=== PATIENT | female | born 1990 | race Caucasian/White ===

== ENCOUNTER → 2018-02-23 | Outpatient (CLI) | payer OTHER ==
[~2018-02-23] MED LIST: PROHANCE 279.3MG/ML 15ML VIAL (A9576) As Ordered; PROHANCE 279.3MG/ML 5ML VIAL (A9576) As Ordered
== END ==
LOC: M RAD 16:53
DX: M79.89 Other specified soft tissue disorders (principal); M77.52 Other enthesopathy of left foot and ankle
CPT/HCPCS: A9576

== ENCOUNTER → 2018-03-12 | Outpatient (CLI) | payer OTHER | LOC: M SLEEP 20:02 | DX: R40.0 Somnolence (principal); R06.83 Snoring | CPT/HCPCS: 95810 ==

== ENCOUNTER → 2018-10-17 | Outpatient (REF) | payer OTHER | LOC: M LAB REF 18:37 | PROVIDERS: ATTEND Orthopaedic Surgery | DX: M67.472 Ganglion, left ankle and foot (principal) ==

== ENCOUNTER → 2018-11-11 | Outpatient (CLI) | payer MEDICAID, OTHER ==
--- NOTE | 2018-11-11 15:17 | REP ---
Clinical: Left foot pain Technique: AP, lateral, bilateral oblique views left foot . Findings: The osseous structures and joint spaces are intact and normal. There is no evidence for acute fracture or dislocation. Surrounding soft tissues are unremarkable. No subcutaneous emphysema or radiodense foreign body. Impression: No obvious acute abnormality by radiographic evaluation. Electronically Signed by Faustino Bacon MD 11/11/2018 03:07 P
== END ==
LOC: M LRY 14:50
PROVIDERS: ATTEND Nurse Practitioner Family
DX: M79.672 Pain in left foot (principal)

== ENCOUNTER → 2019-01-30 | Outpatient (CLI) | payer OTHER ==
[2019-01-30 17:29] LABS: THYROID STIMULATING HORMONE 1.27 uIU/ML (0.358-3.740); THYROXINE (T4) 11.8 UG/DL (4.5-12.0)
== END ==
LOC: M WUC 14:21
PROVIDERS: ATTEND Plastic Surgery Surgery of the Hand
DX: E66.9 Obesity, unspecified (principal)

== ENCOUNTER → 2019-05-11 | Outpatient (REF) | payer OTHER ==
[2019-05-11 19:00] LABS: CHLAMYDIA DNA AMPLIFICATION POSITIVE (NEGATIVE); GC DNA AMPLIFICATION NEGATIVE (NEGATIVE)
== END ==
LOC: M PLALAB 14:27
PROVIDERS: ATTEND Family Medicine
DX: Z11.3 Encounter for screening for infections with a predominantly sexual mode of transmission (principal); Z12.4 Encounter for screening for malignant neoplasm of cervix; R87.615 Unsatisfactory cytologic smear of cervix

== ENCOUNTER → 2019-06-01 | Outpatient (REF) | payer OTHER | LOC: M PLALAB 16:10 | PROVIDERS: ATTEND Family Medicine | DX: Z12.4 Encounter for screening for malignant neoplasm of cervix (principal) ==

== ENCOUNTER → 2020-02-15 | Outpatient (CLI) | payer OTHER ==
[2020-02-15 17:26] LABS: HCG, SERUM QUALITATIVE POSITIVE (NEGATIVE)
[2020-02-15 17:42] LABS: HCG, SERUM QUANTITATIVE 30126 MIU/ML
== END ==
LOC: M LAB 16:14
PROVIDERS: ATTEND Physician Assistant Medical
DX: N91.2 Amenorrhea, unspecified (principal)

== ENCOUNTER → 2020-03-17 | Outpatient (REF) | payer OTHER ==
[2020-03-17 17:40] LABS: HEMATOCRIT 36.2 % (36.0-47.0); HEMOGLOBIN 11.3 g/dl (12.0-15.5); MEAN CORPUSCULAR HEMOGLOBIN 23.4 pg (27.0-33.0); MEAN CORPUSCULAR HGB CONC 31.2 g/dl (32.0-36.5); MEAN CORPUSCULAR VOLUME 74.9 fl (80.0-96.0); PLATELET COUNT, AUTOMATED 360 10^3/uL (150-450); RED BLOOD COUNT 4.83 10^6/uL (4.00-5.40); WHITE BLOOD COUNT 8.3 10^3/uL (4.0-10.0)
[2020-03-17 18:37] LABS: HEPATITIS C VIRUS ABY INDEX < 0.0 INDEX (<0.8); HIV 1&2 SCREEN CENTAUR NEGATIVE (NEGATIVE)
== END ==
LOC: M PLALAB 14:27
PROVIDERS: ATTEND Obstetrics & Gynecology
DX: Z3A.11 11 weeks gestation of pregnancy (principal)

== ENCOUNTER → 2020-04-25 | Outpatient (REF) | payer OTHER ==
[2020-04-25 15:47] LABS: CHLAMYDIA DNA AMPLIFICATION NEGATIVE (NEGATIVE); GC DNA AMPLIFICATION NEGATIVE (NEGATIVE)
== END ==
LOC: M PLALAB 10:39
PROVIDERS: ATTEND Obstetrics & Gynecology
DX: Z3A.11 11 weeks gestation of pregnancy (principal)

== ENCOUNTER → 2020-05-15 | Outpatient (CLI) | payer OTHER ==
--- NOTE | 2020-05-16 04:15 | REP ---
INDICATION: ANATOMY COMPARISON: None. TECHNIQUE: Transabdominal obstetrical ultrasound with color Doppler evaluation. FINDINGS: Examination demonstrates a single live intrauterine in breech presentation. motion is identified by technologist. Placenta is noted anterior and grade 1 without evidence for placenta previa or abruption. Amniotic fluid volume is normal. Cervix measures 3.0 cm in length and appears closed. Placenta measures 2.3 cm from the closed internal os.. Gestational age by LMP 20 weeks 0 days with CELINA 10/02/2020. Gestational age by current measurements 20 weeks 0 days with CELINA 10/02/2020. FHR equals 142 beats per minute. BPD: 4.5 cm 19 weeks 5 days HC: 16.6 cm 19 weeks 2 days AC: 15.5 cm 20 weeks 5 days FL: 3.2 cm 19 weeks 6 days HL: 3.1 cm 20 weeks 2 days HC/AC: 1.07 Estimated weight 336 grams (55thpercentile). Anatomical assessment demonstrates normal structures including cranium, choroid plexus, cavum, cerebellum/posterior fossa, facial features, lungs, four-chamber heart/ventricular outflow tracts, diaphragm, stomach, cord insertion/three-vessel cord, kidneys/bladder, and extremities. IMPRESSION: Single live intrauterine in breech presentation demonstrating appropriate estimated weight and growth. Limited evaluation of the spine may warrant re-evaluation. Remainder of the anatomical assessment is complete and normal. <Electronically signed by Faustino Bacon > 05/16/20 [id number]
== END ==
LOC: M WHC 13:03
PROVIDERS: ATTEND Advanced Practice Midwife
DX: Z36.9 Encounter for antenatal screening, unspecified (principal); Z3A.20 20 weeks gestation of pregnancy

== ENCOUNTER → 2020-06-13 | Outpatient (CLI) | payer OTHER ==
--- NOTE | 2020-06-13 13:37 | REP ---
INDICATION: F/U ANATOMY COMPARISON: 05/15/2020 TECHNIQUE: Transabdominal obstetrical ultrasound with color Doppler evaluation. FINDINGS: Examination demonstrates a single live intrauterine in transverse presentation. motion is identified by technologist. Placenta is noted anterior and grade 1 without evidence for placenta previa or abruption. Amniotic fluid volume is normal. Cervix measures 3.6 cm in length and appears closed.. Gestational age by LMP 24 weeks 1 day with CELINA 10/02/2020. Gestational age by current measurements 24 weeks 3 days with CELINA 09/30/2020. FHR equals 161 beats per minute. Estimated weight 751 grams (59thpercentile). Anatomical assessment demonstrates normal structures including stomach, three-vessel cord/abdominal wall, kidneys and spine. IMPRESSION: Single live intrauterine demonstrating appropriate estimated weight and growth. In conjunction with prior examination anatomical assessment is complete and normal. <Electronically signed by Faustino Bacon > 06/13/20 [id number]
== END ==
LOC: M WHC 11:22
PROVIDERS: ATTEND Advanced Practice Midwife
DX: O99.212 Obesity complicating pregnancy, second trimester (principal); Z3A.24 24 weeks gestation of pregnancy

== ENCOUNTER → 2020-07-15 | Outpatient (REF) | payer OTHER ==
[2020-07-15 15:47] LABS: HEMATOCRIT 32.2 % (36.0-47.0); HEMOGLOBIN 9.4 g/dl (12.0-15.5); MEAN CORPUSCULAR HEMOGLOBIN 20.9 pg (27.0-33.0); MEAN CORPUSCULAR HGB CONC 29.2 g/dl (32.0-36.5); MEAN CORPUSCULAR VOLUME 71.7 fl (80.0-96.0); PLATELET COUNT, AUTOMATED 371 10^3/uL (150-450); RED BLOOD COUNT 4.49 10^6/uL (4.00-5.40); WHITE BLOOD COUNT 10.9 10^3/uL (4.0-10.0)
== END ==
LOC: M PLALAB 11:31
PROVIDERS: ATTEND Specialist
DX: Z34.82 Encounter for supervision of other normal pregnancy, second trimester (principal); Z36.89 Encounter for other specified antenatal screening

== ENCOUNTER → 2020-08-27 | Outpatient (CLI) | payer OTHER ==
[~2020-08-27] VITALS: Ht 154.9 cm; Wt 101.4 kg
[~2020-08-27] MED LIST changes: +BUTA-198 PO; +IRON325T2 PO; +ONDA-83 PO; +PRENTAB9 PO; -PROHANCE 279.3MG/ML 15ML VIAL (A9576) As Ordered; -PROHANCE 279.3MG/ML 5ML VIAL (A9576) As Ordered
[2020-08-27 10:53] VITALS: BP 104/59
[2020-08-27 12:21] LABS: INR 0.89; PARTIAL THROMBOPLASTIN TIME 22.4 SECONDS (24.2-38.5); PROTHROMBIN TIME 12.2 SECONDS (12.5-14.3)
[2020-08-27 14:51] VITALS: BP 101/58
--- NOTE | 2020-08-27 15:28 | IPN ---
PROGRESS NOTE DATE: 08/27/2020 SUBJECTIVE: Daisha is a 30-year-old 1, para 0, at 34-5/7 weeks gestation, estimated date of confinement (EDC) of 10/03/2020 based on first trimester ultrasound. She presents to labor and delivery today following a report of falling and hitting the right side of her abdomen. She denies vaginal bleeding, leakage of fluid and painful contractions or cramping, and the fetus has been active. Her care was initiated at [facility] in the first trimester. Her course complicated by history of abdominoplasty, history of migraines, obesity and anemia. OBJECTIVE: Temperature 98.5, pulse 78, respirations 16, blood pressure 104/59. She is alert and oriented times three. She does not appear in any discomfort. heart rate is 140 with moderate variability, positive accelerations, negative decelerations. There is no pattern of contractions. She has been monitored for approximately 4 hours continuously. LABORATORY DATA: She did have labs drawn. Her KleihauerBetke (KB) is 0.00. Her PT is 12.2, INR 0.89, PTT 22.4. Her fibrinogen is 490. ASSESSMENT: Intrauterine at 34-5/7 weeks, heart rate category 1, stable condition. PLAN: Discharge the patient to home. She is to keep her next visit that she has scheduled. I did review signs and symptoms of labor, kick counts and important danger signs to report. I did review access to care. The patient has had all of her questions answered and desires discharge home.
== END ==
LOC: M LDO 10:34
PROVIDERS: ATTEND Advanced Practice Midwife
DX: O9A.213 Injury, poisoning and certain other consequences of external causes complicating pregnancy, third trimester (principal); Z3A.34 34 weeks gestation of pregnancy; S30.1XXA Contusion of abdominal wall, initial encounter; W01.0XXA Fall on same level from slipping, tripping and stumbling without subsequent striking against object, initial encounter; Y92.9 Unspecified place or not applicable; Z88.8 Allergy status to other drugs, medicaments and biological substances

== ENCOUNTER 2020-09-03 17:20 | Outpatient (CLI) | payer OTHER ==
[~2020-09-03] VITALS: Ht 154.9 cm; Wt 101.4 kg
[2020-09-03 17:39] VITALS: BP 125/75
[2020-09-03 17:54] LABS: APPEARANCE, URINE HAZY (CLEAR); BACTERIA, URINE AUTO NEGATIVE (NEGATIVE); BILIRUBIN, URINE AUTO NEGATIVE (NEGATIVE); BLOOD, URINE BLOOD NEGATIVE (NEGATIVE); COLOR, URINE YELLOW (YELLOW); GLUCOSE, URINE (UA) AUTO NEGATIVE (NEGATIVE); KETONE, URINE AUTO NEGATIVE (NEGATIVE); LEUKOCYTE ESTERASE, URINE AUTO NEGATIVE (NEGATIVE); NITRITE, URINE AUTO NEGATIVE (NEGATIVE); PROTEIN, URINE AUTO 3+ mg/dL (NEGATIVE); RBC, URINE AUTO 1 /HPF (0-3); SQUAMOUS EPITHELIAL CELL UR AU 3 /HPF (0-6); UROBILINOGEN, URINE AUTO 0.2 mg/dL (0.0-2.0); WBC, URINE AUTO 2 /HPF (0-3)
--- NOTE | 2020-09-03 21:28 | IPN ---
PROGRESS NOTE DATE: 09/03/2020 Daisha is a 30-year-old, 1, para 0, at 35-6/7 weeks gestation, estimated date of confinement (EDC) of 10/03/2020 based on first trimester ultrasound. She presents to labor and delivery today with a report of feeling dizzy and nauseated following a hot shower and drinking some fluids. She does report that she has not eaten a regular meal today. The fetus has been active. She denies contractions, vaginal bleeding, and leakage of fluid. Her care was initiated at [facility] in the first trimester. course complicated by a history of abdominoplasty, a history of migraines, obesity, and anemia. OBSTRETRIC LABORATORY DATA: B positive, antibody screen negative, syphilis negative, gonorrhea and chlamydia negative, hepatitis B, hepatitis C negative, HIV negative, Rubella immune. Urine culture no growth. Gestational diabetic screening 115. PAST MEDICAL HISTORY: Migraines, chronic right knee pain, carpal tunnel, and obesity. SURGERIES: Liposuction, hip surgery, carpal tunnel, colposcopy, and abdominoplasty. FAMILY HISTORY: Hypertension, diabetes. SOCIAL HISTORY: Nonsmoker. Denies alcohol and drug use. Denies history of sexually transmitted infections. Denies history of abuse; physical, sexual, and emotional. ALLERGIES: NAPROSYN, which causes nausea and vomiting. OBJECTIVE: She is alert and oriented times three, she does not appear in any distress. Her skin is warm, pink, and dry. Blood pressure is 125/75. heart rate is 140 with moderate variability, positive accelerations, negative decelerations, there is occasional contractions. Sterile vaginal exam deferred. Her urinalysis (UA) is normal with a specific gravity of 1.010, negative ketones, negative nitrites. ASSESSMENT: Intrauterine at 35-6/7 weeks. heart rate category 1. Likely vasovagal experience. PLAN: Discharge the patient home. I did review the importance of regular nutrition, increased hydration, and decreasing the temperature of her shower to a tepid temperature to decrease vasodilation. She has had all of her questions answered and desires to be discharged home.
== END 2020-09-03 18:45 | disposition home or self-care (01) ==
LOC: M LDO 17:20
PROVIDERS: ATTEND Advanced Practice Midwife
DX: O26.893 Other specified pregnancy related conditions, third trimester (principal); Z3A.35 35 weeks gestation of pregnancy; R11.0 Nausea; O99.213 Obesity complicating pregnancy, third trimester; E66.9 Obesity, unspecified; O99.013 Anemia complicating pregnancy, third trimester; D64.9 Anemia, unspecified; Z88.1 Allergy status to other antibiotic agents

== ENCOUNTER → 2020-09-09 | Outpatient (REF) | payer OTHER | LOC: M SFHCWAGY 13:34 | PROVIDERS: ATTEND Obstetrics & Gynecology | DX: Z36.89 Encounter for other specified antenatal screening (principal); Z3A.36 36 weeks gestation of pregnancy ==

== ENCOUNTER → 2020-09-09 | Outpatient (REF) | payer OTHER | LOC: M PLALAB 10:49 | PROVIDERS: ATTEND Obstetrics & Gynecology | DX: Z53.8 Procedure and treatment not carried out for other reasons (principal) ==

== ENCOUNTER → 2020-09-16 | Outpatient (REF) | payer OTHER ==
[2020-09-16 13:46] LABS: HEMATOCRIT 40.4 % (36.0-47.0); HEMOGLOBIN 12.1 g/dl (12.0-15.5); MEAN CORPUSCULAR HEMOGLOBIN 22.3 pg (27.0-33.0); MEAN CORPUSCULAR VOLUME 74.4 fl (80.0-96.0); PLATELET COUNT, AUTOMATED 275 10^3/uL (150-450); RED BLOOD COUNT 5.43 10^6/uL (4.00-5.40); WHITE BLOOD COUNT 10.7 10^3/uL (4.0-10.0)
[2020-09-16 14:04] LABS: ALT/SGPT 19 U/L (12-78); BILIRUBIN,TOTAL 0.3 MG/DL (0.2-1.0); CREATININE FOR GFR 0.49 MG/DL (0.55-1.30); GLOMERULAR FILTRATION RATE > 60.0 (>60); LDH LACTATE DEHYDROGENASE 208 U/L (84-246); URIC ACID 3.8 MG/DL (2.6-6.0)
== END ==
LOC: M PLALAB 11:43
PROVIDERS: ATTEND Advanced Practice Midwife
DX: O13.9 Gestational [pregnancy-induced] hypertension without significant proteinuria, unspecified trimester (principal); Z3A.00 Weeks of gestation of pregnancy not specified

== ENCOUNTER 2020-09-20 13:57 | Inpatient (IN) | payer OTHER ==
[2020-09-20] VITALS (9 sets, daily range): BP systolic 93–153; BP diastolic 49–91
[~2020-09-20] VITALS: Ht 154.9 cm; Wt 103.4 kg
[2020-09-20] MEDS ORDERED: LACTATED RINGER'S 1000 ML IV STA (14:42)
[2020-09-20] MEDS ORDERED: PENICILLIN G POTASSIUM IV 5 MU in D5W MINI-BAG PLUS 100 ML IV STA (14:42)
[2020-09-20] MEDS ORDERED: OXYTOCIN DRIP 30 UNITS in IV 1 EA IV PRN (14:45)
[2020-09-20] MEDS ORDERED: miSOPROStol 50MCG 1/2 TABLET PV ONE (14:50)
[2020-09-20 15:12] LABS: HEMATOCRIT 39.4 % (36.0-47.0); HEMOGLOBIN 11.9 g/dl (12.0-15.5); MEAN CORPUSCULAR HEMOGLOBIN 22.1 pg (27.0-33.0); MEAN CORPUSCULAR HGB CONC 30.2 g/dl (32.0-36.5); MEAN CORPUSCULAR VOLUME 73.1 fl (80.0-96.0); PLATELET COUNT, AUTOMATED 272 10^3/uL (150-450); RED BLOOD COUNT 5.39 10^6/uL (4.00-5.40); WHITE BLOOD COUNT 9.8 10^3/uL (4.0-10.0)
[2020-09-20 15:41] LABS: ALT/SGPT 20 U/L (12-78); CREATININE FOR GFR 0.31 MG/DL (0.55-1.30); GLOMERULAR FILTRATION RATE > 60.0 (>60); LDH LACTATE DEHYDROGENASE 292 U/L (84-246); URIC ACID 3.7 MG/DL (2.6-6.0)
[2020-09-20 16:13] LABS: BILIRUBIN,TOTAL < 0.1 MG/DL (0.2-1.0)
--- NOTE | 2020-09-20 17:08 | HPEPDOC ---
Obstetrical History & Physical General Date of Admission Sep 20, 2020 at 13:57 History of Present Illness Daisha is a 30yo with SIUP at 38w1d by 11wk u/s presenting for scheduled IOL for pre-eclampsia withOUT severe features. She was seen to have mild bp's in clinic on 09/16 and had pre-E labs done which showed urine prot:creat 0.37 (H/H 12.1/40.4, plt 275, serum creat 0.49, AST 8, ALT 19). BP check on 09/17 showed still mild range bp's. She notes today occasional HAs that go away with tylenol. No regular/painful ctx. No LOF/VB. Good movement. 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 Last pap 06/01/2019 negative), History of STD (chlamydia) Past Medical History Medical History Obesity, migraines, chronic right knee pain, bilateral carpal tunnel syndrome Surgical History: Abdominoplasty, Other (liposuction 2007, hip surgery age 10, carpal tunnel releast 2013 and 2014) Family History Significant Family History: No pertinent family hx Social History Marital Status: Single Family situation: Spouse/partner home Psychosocial History: No pertinent psych hx * Smoker: former Smoker (quit 3 months before ) Alcohol: Denies Drugs: denies Imunizations Tdap status: current Allergies Coded Allergies: naproxen (Verified Adverse Reaction, Unknown, Vomiting, upset stomach, 08/27/20) Medications Scheduled Ferrous Sulfate (Iron) 325 Mg Tablet, 1 TAB PO DAILY No.137/Iron/Folic Acd ( Vitamin Tablet) 1 Each Tablet, 1 TAB PO DAILY Scheduled PRN Butalb/Acetaminophen/Caffeine (Lqlanh-Stmepkfc-Krre 50-325-40) 1 Each Tablet, 1 TAB PO Q4HP PRN for MIGRAINE Physical Examination Physical Examination GENERAL: Alert and oriented times three. ABDOMEN: Gravid and non-tender to touch. FETUS: Is vertex (VTX) by sterile vaginal examination (SVE) EXTREMITIES: No edema Vital Signs/I&O Vital Signs Date Time Temp Pulse Resp B/P (MAP) Pulse Ox O2 Delivery O2 Flow Rate FiO2 09/20/20 14:25 97.9 96 18 153/91 (111) Laboratory Data 24H LABS Laboratory Tests 2 09/20/20 14:06: Serology Scanned Report Hepatitis B Testing 09/20/20 14:57: Nucleated Red Blood Cells % (auto) 0.0, Glomerular Filtration Rate > 60.0, Uric Acid 3.7, Aspartate Amino Transf (AST/SGOT) 20, Alanine Aminotransferase (ALT/SGPT) 20, Lactate Dehydrogenase 292H CBC/BMP Laboratory Tests 09/20/20 14:57 Pertinent Laboratoy Data Blood Type: B+ RBC Antibody Screen: Negative HIV: Negative Hepatitis B: Negative Hepatitis C: Negative Rapid Plasma Reagin: Nonreactive Rubella: Immune Chlamydia/Gonorrhea: Negative Group B Streptococcus: Positive Glucose Tolerance Test: 115 Anatomy Ultrasound Ultrasound Date: May 15, 2020 Placenta Location: Anterior Normal Anatomy: Yes (limited eval spine) Placenta Previa: No Other Ultrasounds 06/13/20 59%ile, anatomy complete and wnl Steroid Therapy Steroid Therapy: No Vaginal Examination Dilation: 1cm Effacement: other (thick) Station: -2 Cervical Consistency: Firm Cervical Position: Middle Presentation: Cephalic presentation Assessment Heart Rate (FHR): 130 Variability: Moderate Accelerations: Positive Decelerations: None Tocometer Contractions: No Assessment/Plan Assessment Daisha is a 30yo with SIUP at 38w1d by 11wk u/s presenting for scheduled IOL for pre-eclampsia withOUT severe features. She was seen to have mild bp's in clinic on 09/16 and had pre-E labs done which showed urine prot:creat 0.37 (H/H 12.1/40.4, plt 275, serum creat 0.49, AST 8, ALT 19). On presentation her bp was mild range then normotensive. Exam benign. Cephalic by SCE. GBS positive. SCE 1/thick/-2, cervical leon bulb placed with 40cc NS and 50mcg PV cytotec placed. Cat I FHRT. Plan Admit and orient. 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 Diet: regular for dinner then clear liquids Group B Streptococcus (GBS) positive, PCN 5/2.5 per protocol Labs and intravenous (IV) per unit protocol. Counseled on leon bulb, cytotec, Pitocin and induction of labor (IOL). Lactated Ringers (LR): Bolus 800 mL, then at 125 mL/hr prior to epidural. Anticipate normal spontaneous delivery () Safe to proceed MD Frank Cramer Katrina D MD Sep 20, 2020 17:08
[2020-09-20] MEDS ORDERED: PENICILLIN G POTASSIUM IV 2.5 MU in IV 1 EA IV SCH (18:45)
[2020-09-20] MEDS ORDERED: BUTORPHANOL 2 MG/ML INJ (J0595) IV PRN (18:50)
[2020-09-20] MEDS: miSOPROStol 25MCG 1/4 TABLET PO SCH ×2 (19:59→23:57)
[2020-09-20] MEDS ORDERED: **PENDING PCN ENTRY XX SCH (21:00)
[2020-09-21] VITALS (47 sets, daily range): BP systolic 72–178; BP diastolic 42–114
[2020-09-21] MEDS ORDERED: PENICILLIN 100,000 U/ML SYRINGE 2.5MU As Ordered ONE (03:53)
[2020-09-21] MEDS: PENICILLIN G POTASSIUM IV 2.5 MU in IV 1 EA IV SCH ×5 (04:21→20:10)
[2020-09-21] MEDS ORDERED: OXYTOCIN DRIP 30 UNITS in IV 1 EA IV SCH (07:35)
[2020-09-21] MEDS: LR 1,000 ML IV SCH ×4 (08:14→17:52)
--- NOTE | 2020-09-21 15:37 | IPNPDOC ---
Text Note Date of Service The patient was seen on 09/21/20. NOTE Intrapartum Note Patient is doing well. Had a dose of IV stadol early this morning, but pain is manageable to her currently with no need for further meds and no desire for epidural yet. IV pitocin was started this morning and titrated up, currently at 6mu. Vitals overall wnl, occasional mild range bp, afebrile Cat I FHRT with bl 130's, +accels, -decels, mod jared Lares: ctx q2-3min SCE: /high After I came out of the room and sat to write this note, RN came to tell me patient's water broke and there is light meconium. Plan is to continue to titrate pitocin per protocol CEFM clear liquids diet patient may have epidural at any time that she desires will continue to closely monitor will notify NICU DrCalvin of presence of meconium safe to proceed Sharron Marie MD VS,Jeannie, I+O VSJeannie I+O Vital Signs Date Time Temp Pulse Resp B/P (MAP) Pulse Ox O2 Delivery O2 Flow Rate FiO2 09/21/20 13:25 90 159/98 (118) 09/21/20 07:56 18 09/21/20 07:00 98.7 Room Air Sharron Marie MD Sep 21, 2020 15:37
[2020-09-21] MEDS ORDERED: FENTANYL 2MCG/ML ROPIVACAINE 0.2% IN 0.9% NACL 100ML IVBAG As Ordered ONE (15:44)
[2020-09-21] MEDS ORDERED: NALOXONE INJ 0.4MG/1ML VIAL (J2310 PER 1MG) IV PRN ×3 (16:30→22:20)
[2020-09-21] MEDS ORDERED: EPIDURAL/PCA KEYS XX PRN (16:30)
[2020-09-21] MEDS ORDERED: EPIDURAL COMMENT XX SCH (16:30)
[2020-09-21] MEDS ORDERED: LACTATED RINGER'S 1000 ML IV PRN (16:30)
[2020-09-21] MEDS ORDERED: FENTANYL/ROPIVACAINE/NACL BAG 100 ML EPIDURAL SCH (16:30)
[2020-09-21] MEDS ORDERED: diphenhydrAMINE 50MG/ML VIAL (J1200) IV PRN ×2 (16:30→22:20)
[2020-09-21] MEDS ORDERED: REFRIGERATOR IV KEYS XX PRN (16:30)
[2020-09-21] MEDS ORDERED: ONDANSETRON 4MG/2ML VIAL IV PRN ×3 (16:30→23:30)
[2020-09-21] MEDS: ePHEDrine SULFATE 25 MG/5 ML(5MG/ML) SYRINGE IV PRN ×2 (16:40→16:46)
[2020-09-21] MEDS ORDERED: KETOROLAC 60MG 2ML VIAL As Ordered ONE (21:42)
[2020-09-21] MEDS ORDERED: OXYTOCIN INJ 10 UNITS/ML VIAL (J2590) As Ordered ONE (21:42)
[2020-09-21] MEDS ORDERED: ONDANSETRON 4MG/2ML VIAL As Ordered ONE (21:42)
[2020-09-21] MEDS ORDERED: dexameTHASONE 4 MG/ML 1ML VIAL (J1100 PER 1MG) As Ordered ONE (21:42)
[2020-09-21] MEDS ORDERED: LIDOCAINE PRES-FREE 2% 10ML AMP As Ordered ONE (21:48)
[2020-09-21] MEDS ORDERED: AZITHROMYCIN INJ 500 MG, VIAL MATE ADAPTER 1 EACH in NS 250 ML IV ONE (21:50)
[2020-09-21] MEDS ORDERED: MORPHINE PRES-FREE INJ 10 MG/10 ML VIAL (J2274) As Ordered ONE (21:50)
[2020-09-21] MEDS ORDERED: BICITRA 30ML SOLN UDC PO ONE (21:50)
[2020-09-21] MEDS ORDERED: ceFAZolin SOD 2 GM in IV 1 EA IV ONE (21:50)
--- NOTE | 2020-09-21 21:58 | IPNPDOC ---
Text Note Date of Service The patient was seen on 09/21/20. NOTE Decision for section Daisha is comfortable with epidural. Pitocin has been titrated up per protocol. Vitals wnl, afebrile SCE: 5-675/high Cat I-II FHRT for min-mod jared, +accels, -decels, mod jared I discussed with patient that she has had no cervical roving changer the past 5 hours, with notably no descent at all. The head is not engaged on the cervix, but above it. I gave her the option of proceeding with section vs giving more time, and at this time she would like to proceed with section for arrest of dilation. Nursing team and anesthesia as well as NICU attending made aware of plan Consent form for PLTCS and blood transfusion fully discussed with patient to include all r/b/a and patient and I signed consent forms Bicitra Anceph 2g IV and Azithromycin 500mg IV x1 pre-op for prophylaxis Will proceed to OR when team is ready. Sharron Marie MD VSJeannie I+O VSJeannie I+O Vital Signs Date Time Temp Pulse Resp B/P (MAP) Pulse Ox O2 Delivery O2 Flow Rate FiO2 09/21/20 19:55 78 16 111/58 (75) 09/21/20 19:22 98.7 09/21/20 07:00 Room Air Sharron Marie MD Sep 21, 2020 21:58
[2020-09-21] MEDS ORDERED: NALBUPHINE HCL 10 MG/ML AMP (J2300) IV PRN ×2 (22:20→23:30)
[2020-09-21] MEDS ORDERED: METOCLOPRAMIDE INJ 10MG/2ML VIAL (J2765 PER 1) IV PRN (22:20)
[2020-09-21] MEDS ORDERED: fentaNYL 100 MCG/2 ML INJECTION (J3010) As Ordered ONE ×2 (22:54→23:18)
[2020-09-21] MEDS ORDERED: KETAMINE HCL 200 MG/20 ML VIAL As Ordered ONE (22:59)
[2020-09-21] MEDS ORDERED: MIDAZOLAM INJ 2MG/2ML VIAL (J2250 PER 1MG) As Ordered ONE (23:09)
[2020-09-21] MEDS ORDERED: METOCLOPRAMIDE INJ 10MG/2ML VIAL (J2765 PER 1) As Ordered ONE (23:21)
[2020-09-21] MEDS ORDERED: oxyCODONE 5MG TAB PO PRN (23:30)
[2020-09-21] MEDS ORDERED: MEPERIDINE INJ 25 MG/ML VIAL (J2175) IV PRN (23:30)
[2020-09-21] MEDS ORDERED: fentaNYL 100 MCG/2 ML INJECTION (J3010) IV PRN (23:30)
[2020-09-21] MEDS ORDERED: HYDROMORPHONE HCL 0.5 MG/ 0.5 ML SYRINGE (J1170 PER 1) IV PRN (23:30)
[2020-09-22] VITALS (8 sets, daily range): BP systolic 131–158; BP diastolic 64–88
[2020-09-22] MEDS ORDERED: MEASLES,MUMPS,RUBELLA VACCINE INJ (MMR-II) (90707) SC SCH (00:45)
[2020-09-22] MEDS ORDERED: RHOGAM 300 MCG (1500 IU) INJ (J2790) IM SCH (00:45)
[2020-09-22] MEDS ORDERED: OXYTOCIN DRIP 30 UNITS in IV 1 EA IV SCH (00:45)
[2020-09-22] MEDS ORDERED: PERCOCET 5MG/325MG TAB PO PRN (00:45)
[2020-09-22] MEDS ORDERED: METHYLERGONOVINE MALEATE 0.2 MG/ML VIAL (J2210) IM ONE (00:45)
[2020-09-22] MEDS ORDERED: KETOROLAC 30 MG/ML 1ML VIAL IV SCH ×2 (00:45→09:00)
[2020-09-22] MEDS ORDERED: LR 1,000 ML IV SCH (00:45)
[2020-09-22] MEDS ORDERED: PERCOCET 5MG/325MG TAB As Ordered ONE (01:00)
[2020-09-22] MEDS: PERCOCET 5MG/325MG TAB PO PRN ×4 (01:02→22:39)
[2020-09-22] MEDS ORDERED: OXYTOCIN 30 UNITS IN 0.9% NaCl 500ML IV BAG (J2590) As Ordered ONE (01:07)
[2020-09-22] MEDS ORDERED: PERCOCET PO (06:52)
[2020-09-22] MEDS ORDERED: DOK1CAP7 PO (06:52)
--- NOTE | 2020-09-22 07:41 | RO ---
OPERATIVE NOTE DATE OF OPERATION: 09/21/2020 PREOPERATIVE DIAGNOSIS: 1. Induction of labor for preeclampsia without severe features at 38 weeks, 3 days. 2. Arrest of dilation. 3. History of abdominoplasty. 4. Obesity, starting BMI 35. POSTOPERATIVE DIAGNOSIS: 1. Induction of labor for preeclampsia without severe features at 38 weeks, 3 days. 2. Arrest of dilation. 3. History of abdominoplasty. 4. Obesity, starting BMI 35. PROCEDURE: Primary low transverse section. SURGEON: Sharron Marie MD [employer] TECHNICAL: Jc Coulter DO whose assistance was necessary for retraction, delivery of the baby and closure of subsequent layers. ANESTHESIA: epidural INDICATION FOR OPERATION: Daisha is a 30-year-old, G1, now P 1-0-0-1, who came to labor and delivery for an induction of labor at 38 weeks, 2 days for preeclampsia WITHOUT severe features. She had induction started with Cytotec, Cody bulb and she progressed with Pitocin to 6, 75, minus 3 but made no further progress over six hours and there was absolutely no descent. She has a history of an abdominoplasty and my suspicion is that is what caused the baby not to descend and get into appropriate positioning. She also has a history of obesity with a BMI of 37 starting and anemia. She is noted to be GBS positive and received penicillin in labor. MATERIAL FORWARDED TO THE LAB FOR EXAMINATION: None. DESCRIPTION OF FINDINGS: Female in cephalic presentation, Apgars 7 and 9, weight 3430 gm or 7 lb, 9 oz. Normal appearing uterus. With the history of the abdominoplasty, we did note some permanent sutures present in the subcutaneous layers including the fascia and the tissue was quite edematous and lacked good turgor in the subcutaneous layers. INFECTION CLASSIFICATION: 2. ESTIMATED BLOOD LOSS: 500 mL IV FLUIDS: 2000 mL of lactated Ringer's. URINE OUTPUT: 200 mL of clear yellow urine. DESCRIPTION OF PROCEDURE: After obtaining informed consent, the patient was taken to the operating room. She had a category 1 to 2 heart rate tracing prior with minimal to moderate variability, positive accels and no decels. She had a Cody catheter and bilateral sequential compression devices already in place secondary to her epidural. She was prepped and draped in normal sterile fashion in the dorsal supine position with a left lateral tilt. A timeout was performed to confirm patient name, date of , procedure and indication. The team was in agreement. She received 500 mg of IV azithromycin as well as 2 gm of Ancef IV prophylactically. Epidural anesthesia was found to be adequate using an Allis clamp. A Pfannenstiel skin incision was made with a scalpel below the prior abdominoplasty scar approximately two fingerbreadths above the pubic symphysis. The incision was carried through the underlying layer of fascia and there was a lot of edema in the tissue with a lack of good turgor. The fascia was incised in the midline and the incision was extended laterally with Wilson scissors. Superior and inferior aspects of the fascial incision were grasped with Mendez clamps, elevated and the underlying rectus muscles were dissected off bluntly and sharply. The peritoneum was entered digitally and the rectus muscles were in the midline. The peritoneal incision was extended superiorly and inferiorly with good visualization of the bladder. The Mobius retractor was inserted. Vesicouterine peritoneum was identified, grasped with pickups and entered sharply with Metzenbaum scissors. Incision was extended laterally and a bladder flap was created digitally. The lower uterine segment was scored in a transverse fashion with a scalpel. The uterus was entered bluntly and the incision was extended with traction. There was meconium stained fluid noted when the patient earlier had spontaneous rupture of membranes and at time of , we also noted thin meconium stained fluid. The infant's head was elevated to the level of the incision. Fundal pressure was applied. The head was delivered atraumatically in the OA position. The anterior shoulder, posterior shoulder and corpus were delivered without difficulty. The nose and mouth were suctioned with bulb suction. Cord was clamped x2 and cut. was handed off to the awaiting nursing team. The placenta was removed with uterine massage and traction on the cord. The uterus was left in situ and cleared of all clot and debris. The uterine incision was repaired with 0 Vicryl suture in a running locking fashion. A second layer of 0 Monocryl was used to close the hysterotomy incision in an imbricating fashion. The uterine incision was inspected and hemostasis was noted. We then removed the Mobius retractor and then placed Aleah along the hysterotomy line. The peritoneum was closed using 3-0 Vicryl suture in a running fashion and rectus muscles were reapproximated with [id number] sutures using 0 Vicryl suture. The fascia was reapproximated with 0 Vicryl suture in a running fashion. The subcutaneous tissue was copiously irrigated. Griselda's fascia was reapproximated using 3-0 Vicryl suture in a running fashion. Skin edges were reapproximated using three inverted interrupted stitches using 3-0 Vicryl suture followed by running subcuticular stitch using 4-0 Monocryl suture. The incision was cleaned using a wet lap, dried with a dry lap. Steri-Strips were applied in the usual fashion perpendicular to the Pfannenstiel incision and then an Optifoam dressing was placed overlying. The vagina was cleared of all blood clot without active bleeding noted. The fundus was difficult to assess given the history of her abdominoplasty and the tight overall abdomen. I asked anesthesia to give the patient 0.2 mg of IM Methergine and asked the nursing team to continue another bag of 30 units of Pitocin at maintenance rates in the PACU. All counts were correct x2. The procedure was without complications. The patient tolerated the procedure well. She was taken to the recovery room on labor and delivery in stable condition. OSMIN
[2020-09-22] MEDS: PRENATAL VITAMINS CHEWABLE TABLET PO SCH (07:56)
[2020-09-22] MEDS: DOCUSATE SODIUM 100MG CAPSULE PO SCH ×2 (07:56→21:04)
--- NOTE | 2020-09-22 08:34 | IPNPDOC ---
Progress Note Date of Service: Sep 22, 2020 Day#: 1 Progress Note POD 1 SUBJECT: Daisha is a 30yo [id number] s/p uncomplicated PLTCS at 38w3d for arrest of dilation when undergoing IOL for pre-eclampsia withOUT severe features, doing well /post-op day #1. Surgery was just before midnight last night. She has not yet ambulated, leon catheter in place draining clear yellow urine and tolerating fluids without n/v. without issue. Reports lochia is like a normal period. No f/c/CP/SOB. OBJECTIVE: VITAL SIGNS: Mild range bp's, afebrile. Alert and oriented times three. Abdomen: Fundus firm at U-1. Soft (tight related to prior abdominoplasty), appropriately tender to palpation. Pfannenstiel incision covered by dry/intact optifoam dressing with no strikethrough. Extremities: no pain with palpation of calves Labs: pre-op H/H: 11.9/39.4 ASSESSMENT: Daisha is a 30yo [id number] s/p uncomplicated PLTCS at 38w3d for arrest of dilation when undergoing IOL for pre-eclampsia withOUT severe features, doing well /post-op day #1. Mild range bp's, afebrile, hemodynamically stable with no evidence of infection. No e/o worsening pre-E. PLAN: 1. Routine post-/post-op care 2. Toradol and prn percocet for pain. 3. Encourage breast feeding/pumping and ambulation as well as use of IS 4. Regular diet 5. Possible discharge on 09/24 if meeting all milestones Sharron Marie MD VS, I&O, 24H, Fishbone Vital Signs/I&O Vital Signs Date Time Temp Pulse Resp B/P (MAP) Pulse Ox O2 Delivery O2 Flow Rate FiO2 09/22/20 07:58 18 09/22/20 06:00 97.7 89 142/84 (103) 97 Room Air I&O- Last 24 Hours up to 6 AM 09/22/20 06:00 Intake Total 2275 ml Output Total 2275 ml Balance 0 ml Sharron Marie MD Sep 22, 2020 08:34
[2020-09-22] MEDS: KETOROLAC 30 MG/ML 1ML VIAL IV SCH (17:54)
[2020-09-22] MEDS: ONDANSETRON 4MG/2ML VIAL IV PRN (22:38)
[2020-09-23] MEDS: KETOROLAC 30 MG/ML 1ML VIAL IV SCH ×2 (00:16→06:33)
[2020-09-23 02:00] VITALS: BP 130/78
[2020-09-23] MEDS: SIMETHICONE 80MG CHEW TAB PO PRN ×2 (03:19→11:05)
[2020-09-23] MEDS: ONDANSETRON 4MG/2ML VIAL IV PRN (04:42)
[2020-09-23] MEDS: PERCOCET 5MG/325MG TAB PO PRN (05:47)
[2020-09-23 06:00] VITALS: BP 137/85
[2020-09-23 07:50] LABS: HEMATOCRIT 34.7 % (36.0-47.0); HEMOGLOBIN 10.5 g/dl (12.0-15.5); MEAN CORPUSCULAR HGB CONC 30.3 g/dl (32.0-36.5); MEAN CORPUSCULAR VOLUME 76.1 fl (80.0-96.0); PLATELET COUNT, AUTOMATED 250 10^3/uL (150-450); RED BLOOD COUNT 4.56 10^6/uL (4.00-5.40); WHITE BLOOD COUNT 11.5 10^3/uL (4.0-10.0)
[2020-09-23] MEDS: PRENATAL VITAMINS CHEWABLE TABLET PO SCH (09:28)
[2020-09-23] MEDS: DOCUSATE SODIUM 100MG CAPSULE PO SCH (09:28)
[2020-09-23 10:00] VITALS: BP 162/78
--- NOTE | 2020-09-23 15:54 | DS.PDOC ---
Discharge Summary General Date of Admission Sep 20, 2020 at 13:57 Date of Discharge Sep 23, 2020 Discharge Summary PROCEDURES PERFORMED DURING STAY: . ADMITTING DIAGNOSES: 1. 38 3/7 weeks, preeclampsia. DISCHARGE DIAGNOSES: 1. delivered. COMPLICATIONS/CHIEF COMPLAINT: IOL. HISTORY OF PRESENT ILLNESS: 30 yo at 38 3/7 weeks present for labor induction due to preeclampsia. HOSPITAL COURSE: 30 yo G1 at 38 3/7 weeks gestation admitted with diagnosis of preeclampsia. Labor induction initiated with Misoprostol. Pt made slow progress. She was eventually diagnosed with arrest of dilation. On 09/21/2020 she had a section. THere were no complications. She had adequate return of bryan dder and bowel function. She was stable for discharge on post psrtum day#2. DISCHARGE MEDICATIONS: Please see below. ALLERGIES: Please see below. PHYSICAL EXAMINATION ON DISCHARGE: VITAL SIGNS: Please see below. GENERAL: WNL HEENT: NCAT CARDIOVASCULAR EXAMINATION: RRR RESPIRATORY EXAMINATION: CTAB ABDOMINAL EXAMINATION: NT, ffm, dressing I EXTREMITIES: NT LABORATORY DATA: Please see below. PROGNOSIS: good ACTIVITY: As tolerated. DIET: reg DISCHARGE PLAN: home DISCHARGE INSTRUCTIONS: 1. D/C home 2. Pain managment 3. fu office 2 weeks. DISCHARGE CONDITION: Stable. TIME SPENT ON DISCHARGE: Greater than 10 minutes. Vital Signs/I&Os Vital Signs Date Time Temp Pulse Resp B/P (MAP) Pulse Ox O2 Delivery O2 Flow Rate FiO2 09/23/20 10:00 98.1 74 20 162/78 (106) 96 Room Air I&O- Last 24 Hours up to 6 AM 09/23/20 06:00 Intake Total 3210 ml Output Total 2700 ml Balance 510 ml Laboratory Data Labs 24H Laboratory Tests 2 09/23/20 07:15: Nucleated Red Blood Cells % (auto) 0.0 CBC/BMP Laboratory Tests 09/23/20 07:15 Discharge Medications Scheduled Docusate Sodium (Dok) 100 Mg Capsule, 100 MG PO BID Ferrous Sulfate (Iron) 325 Mg Tablet, 1 TAB PO DAILY, (Reported) No.137/Iron/Folic Acd ( Vitamin Tablet) 1 Each Tablet, 1 TAB PO DAILY, (Reported) Scheduled PRN Butalb/Acetaminophen/Caffeine (Rrjnal-Zvgbgncl-Iwis 50-325-40) 1 Each Tablet, 1 TAB PO Q4HP PRN for MIGRAINE, (Reported) Oxycodone/Acetaminophen (Oxycodone-Acetaminophen 5-325) 1 Each Tablet, 2 TAB PO Q6H PRN for SEVERE PAIN (PS 8-10) Allergies Coded Allergies: naproxen (Verified Adverse Reaction, Mild, Vomiting, upset stomach, 1) DAGOBERTO MORA MD Sep 23, 2020 15:49
[2020-09-23] MEDS ORDERED: OXYC-517 PO (17:45)
[2020-09-23] MEDS ORDERED: MM S100C PO (17:47)
== END 2020-09-23 16:34 | disposition home or self-care (01) | DRG 540 ==
LOC: M LDI 13:57 → M OBS 09-22 01:28
PROVIDERS: ADMIT Obstetrics & Gynecology; ATTEND Obstetrics & Gynecology
PROC: 3E0P7GC Introduction of Other Therapeutic Substance into Female Reproductive, Via Natural or Artificial Opening (ICD-10-PCS; 2020-09-20)
PROC: 10D00Z1 Extraction of Products of Conception, Low, Open Approach (ICD-10-PCS; principal; 2020-09-21 21:38)
DX: O14.04 Mild to moderate pre-eclampsia, complicating childbirth (principal); Z3A.38 38 weeks gestation of pregnancy; Z37.0 Single live birth; O99.214 Obesity complicating childbirth; E66.9 Obesity, unspecified; Z68.37 Body mass index [BMI] 37.0-37.9, adult; O99.824 Streptococcus B carrier state complicating childbirth; O77.0 Labor and delivery complicated by meconium in amniotic fluid; O62.0 Primary inadequate contractions

== ENCOUNTER → 2020-12-29 | Outpatient (CLI) | payer OTHER ==
[~2020-12-29] MED LIST changes: +DOK1CAP4 PO; +MM S100C PO; +OXYC-517 PO; +PERCOCET PO
[2020-12-29 13:18] LABS: FREE T4 1.06 NG/DL (0.76-1.46); THYROID STIMULATING HORMONE 0.812 uIU/ML (0.358-3.740)
[2020-12-29 13:21] LABS: TOTAL 25(OH) VITAMIN D 21.6 NG/ML (30.0-100.0)
== END ==
LOC: M LAB 11:41
PROVIDERS: ATTEND Student in an Organized Health Care Education/Training Program
DX: E55.9 Vitamin D deficiency, unspecified (principal); F41.9 Anxiety disorder, unspecified

== ENCOUNTER → 2021-05-07 | Outpatient (CLI) | payer OTHER | LOC: M WUC 15:09 | PROVIDERS: ATTEND Nurse Practitioner Family | DX: M25.511 Pain in right shoulder (principal); R07.81 Pleurodynia ==

== ENCOUNTER → 2021-07-22 | Outpatient (CLI) | payer OTHER | LOC: M WUC 09:23 | PROVIDERS: ATTEND Student in an Organized Health Care Education/Training Program | DX: M54.50 Low back pain, unspecified (principal) ==

== ENCOUNTER → 2021-11-24 | Outpatient (CLI) | payer OTHER | LOC: M PLAIMG 15:43 | PROVIDERS: ATTEND Physician Assistant | DX: M51.36 Other intervertebral disc degeneration, lumbar region (principal) ==

== ENCOUNTER → 2022-01-16 | Outpatient (REF) | payer OTHER ==
[2022-01-16 17:51] LABS: APPEARANCE, URINE MANUAL CLEAR (CLEAR); COLOR, URINE MANUAL LT YELLOW (YELLOW)
[2022-01-16 17:52] LABS: GLUCOSE, URINE (UA) MANUAL NEGATIVE (NEGATIVE); KETONE, URINE MANUAL NEGATIVE (NEGATIVE); PROTEIN, URINE MANUAL NEGATIVE (NEGATIVE); UROBILINOGEN, URINE MANUAL NORMAL (NORMAL)
[2022-01-16 17:53] LABS: BILIRUBIN, URINE MANUAL NEGATIVE (NEGATIVE); BLOOD URINE MANUAL NEGATIVE (NEGATIVE); LEUKOCYTE ESTERASE, URINE MAN NEGATIVE (NEGATIVE); NITRITE, URINE MANUAL NEGATIVE (NEGATIVE)
[2022-01-16 20:01] LABS: GC DNA AMPLIFICATION NEGATIVE (NEGATIVE)
== END ==
LOC: M LAB REF 17:16
PROVIDERS: ATTEND Physician Assistant Medical
DX: N39.0 Urinary tract infection, site not specified (principal)

== ENCOUNTER → 2022-03-09 | Outpatient (CLI) | payer OTHER ==
[2022-03-09 07:53] LABS: BASO # 0.1 10^3/uL (0.0-0.2); EOS # 0.1 10^3/uL (0.0-0.5); EOS % 2.8 % (0.0-3.0); HEMATOCRIT 38.9 % (36.0-47.0); LYMPH # 1.6 10^3/uL (1.5-5.0); LYMPH % 31.8 % (24.0-44.0); MEAN CORPUSCULAR HEMOGLOBIN 24.2 pg (27.0-33.0); MEAN CORPUSCULAR HGB CONC 30.8 g/dl (32.0-36.5); MEAN CORPUSCULAR VOLUME 78.4 fl (80.0-96.0); MONO # 0.3 10^3/uL (0.0-0.8); MONO % 5.7 % (2.0-8.0); NEUTROPHILS % 58.5 % (36.0-66.0); PLATELET COUNT, AUTOMATED 373 10^3/uL (150-450); RED BLOOD COUNT 4.96 10^6/uL (4.00-5.40); WHITE BLOOD COUNT 5.1 10^3/uL (4.0-10.0)
[2022-03-09 08:25] LABS: RHEUMATOID FACTOR QUANT < 3.5 IU/ML (<14)
[2022-03-09 08:26] LABS: ERYTHROCYTE SEDIMENTATION RATE 13 mm/hr (0-20)
== END ==
LOC: M LAB 06:45
PROVIDERS: ATTEND Orthopaedic Surgery
DX: M51.36 Other intervertebral disc degeneration, lumbar region (principal)

== ENCOUNTER → 2022-03-09 | Outpatient (CLI) | payer OTHER ==
[2022-03-09 08:07] LABS: BASO # 0.1 10^3/uL (0.0-0.2); BASO % 1.4 % (0.0-1.0); EOS # 0.2 10^3/uL (0.0-0.5); EOS % 3.2 % (0.0-3.0); HEMATOCRIT 39.1 % (36.0-47.0); HEMOGLOBIN 12.2 g/dl (12.0-15.5); LYMPH # 1.7 10^3/uL (1.5-5.0); LYMPH % 32.7 % (24.0-44.0); MEAN CORPUSCULAR HEMOGLOBIN 24.5 pg (27.0-33.0); MEAN CORPUSCULAR HGB CONC 31.2 g/dl (32.0-36.5); MEAN CORPUSCULAR VOLUME 78.7 fl (80.0-96.0); MONO # 0.3 10^3/uL (0.0-0.8); MONO % 5.1 % (2.0-8.0); NEUTROPHILS # 2.9 10^3/uL (1.5-8.5); NEUTROPHILS % 57.2 % (36.0-66.0); PLATELET COUNT, AUTOMATED 377 10^3/uL (150-450); RED BLOOD COUNT 4.97 10^6/uL (4.00-5.40); WHITE BLOOD COUNT 5.1 10^3/uL (4.0-10.0)
[2022-03-09 08:16] LABS: POTASSIUM SERUM 4.5 MMOL/L (3.5-5.1)
[2022-03-09 08:29] LABS: FERRITIN 7.5 NG/ML (7.3-270.7)
== END ==
LOC: M RAD 06:42
PROVIDERS: ATTEND Student in an Organized Health Care Education/Training Program
DX: K76.89 Other specified diseases of liver (principal); K76.9 Liver disease, unspecified; R71.8 Other abnormality of red blood cells; E87.6 Hypokalemia

== ENCOUNTER → 2022-03-24 | Outpatient (REF) | payer OTHER ==
[2022-03-24 19:34] LABS: APPEARANCE, URINE MANUAL CLEAR (CLEAR); COLOR, URINE MANUAL YELLOW (YELLOW)
[2022-03-24 19:35] LABS: BILIRUBIN, URINE MANUAL NEGATIVE (NEGATIVE); BLOOD URINE MANUAL NEGATIVE (NEGATIVE); GLUCOSE, URINE (UA) MANUAL NEGATIVE (NEGATIVE); KETONE, URINE MANUAL NEGATIVE (NEGATIVE); LEUKOCYTE ESTERASE, URINE MAN NEGATIVE (NEGATIVE); NITRITE, URINE MANUAL NEGATIVE (NEGATIVE); PROTEIN, URINE MANUAL NEGATIVE (NEGATIVE); SPECIFIC GRAVITY,URINE MANUAL 1.015 (1.002-1.035); UROBILINOGEN, URINE MANUAL NORMAL (NORMAL)
== END ==
LOC: M SMT 17:00
PROVIDERS: ATTEND Nurse Practitioner Women's Health
DX: N20.0 Calculus of kidney (principal)

== ENCOUNTER → 2022-04-01 | Outpatient (CLI) | payer OTHER | LOC: M RAD 15:47 | PROVIDERS: ATTEND Nurse Practitioner Women's Health | DX: N20.0 Calculus of kidney (principal) ==

== ENCOUNTER → 2022-04-15 | Outpatient (CLI) | payer OTHER ==
[~2022-04-15] MED LIST changes: +BOTO200I; +NORT25CA2; +SUMA100T2; +TIZA10TA
[2022-04-15 16:36] LABS: HEMATOCRIT 41.3 % (36.0-47.0); HEMOGLOBIN 12.7 g/dl (12.0-15.5); MEAN CORPUSCULAR HEMOGLOBIN 24.6 pg (27.0-33.0); MEAN CORPUSCULAR HGB CONC 30.8 g/dl (32.0-36.5); MEAN CORPUSCULAR VOLUME 79.9 fl (80.0-96.0); PLATELET COUNT, AUTOMATED 322 10^3/uL (150-450); RED BLOOD COUNT 5.17 10^6/uL (4.00-5.40); WHITE BLOOD COUNT 8.3 10^3/uL (4.0-10.0)
[2022-04-15 16:58] LABS: HCG, SERUM QUALITATIVE NEGATIVE (NEGATIVE)
[2022-04-15 17:00] LABS: BLOOD UREA NITROGEN 14 MG/DL (9-23); CALCIUM LEVEL 8.9 MG/DL (8.5-10.1); CARBON DIOXIDE LEVEL 27 MMOL/L (20-31); CHLORIDE LEVEL 104 MMOL/L (98-107); CREATININE FOR GFR 0.56 MG/DL (0.55-1.30); GLOMERULAR FILTRATION RATE > 60.0 (>60); GLUCOSE, FASTING 76 MG/DL (60-100); SODIUM LEVEL 140 MMOL/L (136-145)
[2022-04-15 17:16] LABS: INR 0.94; PROTHROMBIN TIME 12.8 SECONDS (12.5-14.5)
[2022-04-15 17:17] LABS: PARTIAL THROMBOPLASTIN TIME 29.8 SECONDS (24.8-34.2)
== END ==
LOC: M LAB 16:02
PROVIDERS: ATTEND Nurse Practitioner Women's Health
DX: Z01.818 Encounter for other preprocedural examination (principal); N20.0 Calculus of kidney

== ENCOUNTER → 2022-04-18 | Outpatient (CLI) | payer OTHER | LOC: M LABSMTC 10:28 | PROVIDERS: ATTEND Anesthesiology | DX: Z01.812 Encounter for preprocedural laboratory examination (principal); Z20.822 Contact with and (suspected) exposure to COVID-19 ==

== ENCOUNTER → 2022-10-15 | Outpatient (CLI) | payer OTHER | LOC: M LAB 17:20 | PROVIDERS: ATTEND Physician Assistant | DX: N20.0 Calculus of kidney (principal) ==

== ENCOUNTER → 2022-11-25 | Outpatient (REF) | payer OTHER ==
[2022-11-25 13:24] LABS: HEMOGLOBIN A1c 5.1 % (4.0-6.0)
[2022-11-25 13:25] LABS: ALBUMIN 3.8 G/DL (3.2-5.2); ALKALINE PHOSPHATASE 51 U/L (46-116); ALT/SGPT 15 U/L (7.0-40); AST/SGOT < 8 U/L (<34); BILIRUBIN,TOTAL 0.4 MG/DL (0.3-1.2); BLOOD UREA NITROGEN 9 MG/DL (9-23); CALCIUM LEVEL 8.9 MG/DL (8.5-10.1); CARBON DIOXIDE LEVEL 24 MMOL/L (20-31); CHLORIDE LEVEL 109 MMOL/L (98-107); CHOLESTEROL LEVEL 183 MG/DL (<200); CHOLESTEROL RISK RATIO 3.33 (<5); CREATININE FOR GFR 0.55 MG/DL (0.55-1.30); GLOMERULAR FILTRATION RATE > 60.0 (>60); GLUCOSE, FASTING 89 MG/DL (60-100); HDL CHOLESTEROL 54.8 MG/DL (>40); NON-HDL-C 128.2 MG/DL; POTASSIUM SERUM 4.1 MMOL/L (3.5-5.1); SODIUM LEVEL 141 MMOL/L (136-145); TOTAL PROTEIN 7.1 G/DL (5.7-8.2); TRIGLYCERIDES LEVEL 56 MG/DL (<150)
[2022-11-25 13:26] LABS: FREE T4 1.13 NG/DL (0.89-1.76); THYROID STIMULATING HORMONE 1.117 uIU/ML (0.55-4.78)
== END ==
LOC: M WUC 12:04
PROVIDERS: ATTEND Student in an Organized Health Care Education/Training Program
DX: O99.212 Obesity complicating pregnancy, second trimester (principal)

== ENCOUNTER → 2023-03-14 | Outpatient (CLI) | payer OTHER ==
[2023-03-14 17:48] LABS: HEMOGLOBIN 12.8 g/dl (12.0-15.5); MEAN CORPUSCULAR VOLUME 78.3 fl (80.0-96.0); PLATELET COUNT, AUTOMATED 340 10^3/uL (150-450); RED BLOOD COUNT 5.11 10^6/uL (4.00-5.40); WHITE BLOOD COUNT 9.2 10^3/uL (4.0-10.0)
[2023-03-14 18:10] LABS: TOTAL PROTEIN,RANDOM URINE 13.8 MG/DL (0.0-14.0)
[2023-03-14 18:14] LABS: URIC ACID 3.3 MG/DL (3.1-7.8)
[2023-03-14 18:15] LABS: CREATININE,RANDOM URINE 174.3 MG/DL
[2023-03-14 18:16] LABS: LDH LACTATE DEHYDROGENASE 181 U/L (120-246)
[2023-03-14 18:18] LABS: ALT/SGPT 17 U/L (7.0-40); AST/SGOT 9 U/L (<34); BILIRUBIN,TOTAL 0.2 MG/DL (0.3-1.2); CREATININE FOR GFR 0.52 MG/DL (0.55-1.30); GLOMERULAR FILTRATION RATE > 60.0 (>60)
[2023-03-14 18:42] LABS: HIV 1&2 SCREEN NEGATIVE (NEGATIVE)
[2023-03-14 18:51] LABS: HEPATITIS C VIRUS ABY INDEX 0.07 INDEX (<0.8)
[2023-03-14 19:31] LABS: CHLAMYDIA DNA AMPLIFICATION NEGATIVE (NEGATIVE); GC DNA AMPLIFICATION NEGATIVE (NEGATIVE)
== END ==
LOC: M PLALAB 14:54
PROVIDERS: ATTEND Advanced Practice Midwife
DX: Z34.91 Encounter for supervision of normal pregnancy, unspecified, first trimester (principal)

== ENCOUNTER → 2023-05-02 | Outpatient (CLI) | payer OTHER | LOC: M WHC 13:00 | PROVIDERS: ATTEND Obstetrics & Gynecology | DX: Z34.92 Encounter for supervision of normal pregnancy, unspecified, second trimester (principal) ==

== ENCOUNTER → 2023-05-23 | Outpatient (CLI) | payer OTHER | LOC: M WHC 14:49 | PROVIDERS: ATTEND Advanced Practice Midwife | DX: Z34.92 Encounter for supervision of normal pregnancy, unspecified, second trimester (principal); Z3A.21 21 weeks gestation of pregnancy ==

== ENCOUNTER → 2023-06-24 | Outpatient (CLI) | payer OTHER ==
[2023-06-24 16:38] LABS: HEMOGLOBIN 11.2 g/dl (12.0-15.5); MEAN CORPUSCULAR HEMOGLOBIN 25.3 pg (27.0-33.0); PLATELET COUNT, AUTOMATED 321 10^3/uL (150-450); RED BLOOD COUNT 4.43 10^6/uL (4.00-5.40); WHITE BLOOD COUNT 10.3 10^3/uL (4.0-10.0)
[2023-06-24 18:01] LABS: GC DNA AMPLIFICATION NEGATIVE (NEGATIVE)
== END ==
LOC: M PLALAB 11:35
PROVIDERS: ATTEND Specialist
DX: Z34.82 Encounter for supervision of other normal pregnancy, second trimester (principal)

== ENCOUNTER → 2023-08-31 | Outpatient (REF) | payer OTHER | LOC: M SFHCWAGY 16:57 | PROVIDERS: ATTEND Obstetrics & Gynecology | DX: Z36.85 Encounter for antenatal screening for Streptococcus B (principal); Z3A.35 35 weeks gestation of pregnancy ==

== ENCOUNTER 2023-09-27 05:05 | Inpatient (IN) | payer OTHER ==
[~2023-09-27] VITALS: Ht 154.9 cm; Wt 111.0 kg
[2023-09-27] VITALS (8 sets, daily range): BP systolic 92–135; BP diastolic 43–85; O2SAT 97–100
[~2023-09-27 05:05] MED LIST changes: +BAYE81TA7 PO; +MULTTAB20 PO
[2023-09-27] MEDS: LACTATED RINGER'S 1000 ML IV STA (05:35)
[2023-09-27 05:48] LABS: HEMATOCRIT 35.2 % (36.0-47.0); HEMOGLOBIN 11.3 g/dl (12.0-15.5); MEAN CORPUSCULAR HEMOGLOBIN 23.9 pg (27.0-33.0); MEAN CORPUSCULAR HGB CONC 32.1 g/dl (32.0-36.5); MEAN CORPUSCULAR VOLUME 74.6 fl (80.0-96.0); PLATELET COUNT, AUTOMATED 328 10^3/uL (150-450); RED BLOOD COUNT 4.72 10^6/uL (4.00-5.40); WHITE BLOOD COUNT 12.1 10^3/uL (4.0-10.0)
[2023-09-27] MEDS: LR 1,000 ML IV SCH ×2 (06:35→15:40)
[2023-09-27 06:55] LABS: HEPATITIS C VIRUS ABY INDEX < 0.02 INDEX (<0.8)
[2023-09-27] MEDS ORDERED: fentaNYL 100 MCG/2 ML INJECTION As Ordered ONE (07:18)
[2023-09-27] MEDS ORDERED: ePHEDrine SULFATE 25 MG/5 ML(5MG/ML) SYRINGE As Ordered ONE (07:18)
[2023-09-27] MEDS ORDERED: MORPHINE PRES-FREE INJ 10 MG/10 ML VIAL As Ordered ONE (07:19)
[2023-09-27] MEDS: ceFAZolin SOD 2 GM in IV 1 EA IV ONE (07:34)
[2023-09-27] MEDS: BICITRA 30ML SOLN UDC PO ONE (07:34)
[2023-09-27] MEDS ORDERED: KETOROLAC 60MG 2ML VIAL As Ordered ONE (08:50)
[2023-09-27] MEDS ORDERED: METOCLOPRAMIDE INJ 10MG/2ML VIAL IV PRN (09:45)
[2023-09-27] MEDS ORDERED: oxyCODONE 5MG TAB PO PRN (09:45)
[2023-09-27] MEDS ORDERED: RHO(D) IMMUNE GLOBULIN/MALTOSE 500MCG(2500IU)/2.2ML VIAL (WINRHO) IM SCH (09:45)
[2023-09-27] MEDS ORDERED: OXYTOCIN 30UNITS IN 0.9% NaCl 500ML IV BAG As Ordered ONE (09:53)
[2023-09-27] MEDS ORDERED: KETOROLAC 30 MG/ML 1ML VIAL As Ordered ONE (09:53)
[2023-09-27] MEDS: OXYTOCIN DRIP 30 UNITS in IV 1 EA IV SCH (09:56)
[2023-09-27] MEDS: KETOROLAC 30 MG/ML 1ML VIAL IV SCH (09:56)
[2023-09-27] MEDS ORDERED: ONDANSETRON 4MG 2ML VIAL As Ordered ONE (10:03)
[2023-09-27] MEDS: ONDANSETRON 4MG 2ML VIAL IV PRN (10:03)
[2023-09-27] MEDS ORDERED: ACETAMINOPHEN 500 MG TAB PO SCH (12:00)
[2023-09-27] MEDS: ACETAMINOPHEN 500 MG TAB PO SCH (14:53)
[2023-09-28] VITALS (7 sets, daily range): BP systolic 115–134; BP diastolic 58–74; TEMP 97.5; O2SAT 96–100
[2023-09-28] MEDS: SIMETHICONE 80MG CHEW TAB PO PRN (03:41)
[2023-09-28 07:02] LABS: HEMATOCRIT 32.6 % (36.0-47.0); HEMOGLOBIN 10.3 g/dl (12.0-15.5); MEAN CORPUSCULAR HEMOGLOBIN 24.1 pg (27.0-33.0); MEAN CORPUSCULAR HGB CONC 31.6 g/dl (32.0-36.5); MEAN CORPUSCULAR VOLUME 76.2 fl (80.0-96.0); PLATELET COUNT, AUTOMATED 298 10^3/uL (150-450); RED BLOOD COUNT 4.28 10^6/uL (4.00-5.40); WHITE BLOOD COUNT 9.6 10^3/uL (4.0-10.0)
[2023-09-28] MEDS: PRENATAL VITAMINS CHEWABLE TABLET PO SCH (09:52)
[2023-09-28] MEDS: DOCUSATE SODIUM 100MG CAPSULE PO PRN (09:52)
[2023-09-28] MEDS: IBUPROFEN 600MG TAB PO SCH (12:34)
[2023-09-28] MEDS: oxyCODONE 5MG TAB PO PRN (15:41)
[2023-09-29 02:00] VITALS: BP 139/76; O2SAT 100
[2023-09-29 05:45] VITALS: BP 124/69; O2SAT 98
[2023-09-29] MEDS: MEASLES,MUMPS,RUBELLA VACCINE INJ (MMR-II) SC.IMMUN ONE (09:00)
[2023-09-29 10:00] VITALS: BP 138/76; O2SAT 99
[2023-09-29] MEDS ORDERED: OXYC-517 PO (14:29)
[2023-09-29] MEDS ORDERED: COLA100C5 PO (14:29)
[2023-09-29] MEDS ORDERED: IBUP-1022 PO (14:29)
== END 2023-09-29 15:39 | disposition home or self-care (01) | DRG 540 ==
LOC: M LDI 05:05 → M OBS 11:05
PROVIDERS: ADMIT Obstetrics & Gynecology; ATTEND Obstetrics & Gynecology
PROC: 10D00Z1 Extraction of Products of Conception, Low, Open Approach (ICD-10-PCS; principal; 2023-09-27 07:30)
DX: O34.211 Maternal care for low transverse scar from previous cesarean delivery (principal); Z68.42 Body mass index [BMI] 45.0-49.9, adult; E66.9 Obesity, unspecified; O99.214 Obesity complicating childbirth; Z37.0 Single live birth; Z3A.39 39 weeks gestation of pregnancy; Z88.8 Allergy status to other drugs, medicaments and biological substances

== ENCOUNTER 2024-02-02 08:50 | Outpatient (RCR) | payer OTHER ==
[~2024-02-02 08:50] MED LIST changes: +COLA100C5 PO; +IBUP-1022 PO
== END 2024-02-09 ==
LOC: M PT 08:50
PROVIDERS: ATTEND Family Medicine
DX: M62.08 Separation of muscle (nontraumatic), other site (principal)

== ENCOUNTER 2024-02-14 09:12 | Outpatient (RCR) | payer OTHER | END 2024-03-10 | LOC: M PT 09:12 | PROVIDERS: ATTEND Obstetrics & Gynecology | DX: M62.08 Separation of muscle (nontraumatic), other site (principal) ==

== ENCOUNTER → 2024-05-07 | Outpatient (CLI) | payer OTHER | LOC: M WUC 10:39 | PROVIDERS: ATTEND Physician Assistant | DX: N20.0 Calculus of kidney (principal) ==

== ENCOUNTER → 2024-06-13 | Outpatient (CLI) | payer OTHER ==
[2024-06-13 14:14] LABS: BASO # 0.1 10^3/uL (0.0-0.2); BASO % 0.8 % (0.0-1.0); EOS # 0.1 10^3/uL (0.0-0.5); HEMATOCRIT 42.3 % (36.0-47.0); HEMOGLOBIN 13.3 g/dl (12.0-15.5); LYMPH # 1.8 10^3/uL (1.5-5.0); LYMPH % 25.1 % (24.0-44.0); MEAN CORPUSCULAR HEMOGLOBIN 25.6 pg (27.0-33.0); MEAN CORPUSCULAR HGB CONC 31.4 g/dl (32.0-36.5); MEAN CORPUSCULAR VOLUME 81.3 fl (80.0-96.0); MONO # 0.4 10^3/uL (0.0-0.8); NEUTROPHILS # 4.8 10^3/uL (1.5-8.5); NEUTROPHILS % 66.7 % (36.0-66.0); PLATELET COUNT, AUTOMATED 405 10^3/uL (150-450); WHITE BLOOD COUNT 7.2 10^3/uL (4.0-10.0)
[2024-06-13 14:17] LABS: ALBUMIN 3.9 G/DL (3.2-5.2); ALKALINE PHOSPHATASE 75 U/L (35-104); ALT/SGPT 23 U/L (7.0-40); AST/SGOT 11 U/L (<34); BILIRUBIN,TOTAL 0.4 MG/DL (0.3-1.2); BLOOD UREA NITROGEN 8 MG/DL (9-23); CALCIUM LEVEL 9.2 MG/DL (8.5-10.1); CARBON DIOXIDE LEVEL 25 MMOL/L (20-31); CHLORIDE LEVEL 107 MMOL/L (98-107); CREATININE FOR GFR 0.51 MG/DL (0.55-1.30); GLOMERULAR FILTRATION RATE > 60.0 (>60); GLUCOSE, FASTING 71 MG/DL (60-100); POTASSIUM SERUM 4.5 MMOL/L (3.5-5.1); SODIUM LEVEL 141 MMOL/L (136-145); TOTAL PROTEIN 7.6 G/DL (5.7-8.2)
[2024-06-13 14:20] LABS: THYROID STIMULATING HORMONE 1.109 uIU/ML (0.55-4.78)
[2024-06-13 14:21] LABS: FERRITIN 43.6 NG/ML (7.3-270.7); FREE T4 1.26 NG/DL (0.89-1.76)
[2024-06-13 14:22] LABS: VITAMIN B12 LEVEL 465 PG/ML (211-911)
[2024-06-14 09:20] LABS: IRON (FE) 54 UG/DL (50-170)
== END ==
LOC: M PLALAB 09:44
PROVIDERS: ATTEND Physician Assistant Medical
DX: R53.83 Other fatigue (principal)

== ENCOUNTER → 2024-06-14 | Outpatient (REF) | payer OTHER | LOC: M SFHCPLAZ 08:37 | PROVIDERS: ATTEND Physician Assistant Medical | DX: Z53.9 Procedure and treatment not carried out, unspecified reason (principal) ==

== ENCOUNTER → 2024-11-15 | Outpatient (CLI) | payer OTHER | LOC: M PLAIMG 13:45 | PROVIDERS: ATTEND Nurse Practitioner Family | DX: M25.611 Stiffness of right shoulder, not elsewhere classified (principal); M25.511 Pain in right shoulder ==

== ENCOUNTER 2025-01-03 10:40 | Outpatient (RCR) | payer OTHER ==
[~2025-01-03 10:40] MED LIST changes: -IBUP-1022 PO; +IBUP600T42 PO
== END 2025-01-08 ==
LOC: M PT 10:40
PROVIDERS: ATTEND Nurse Practitioner Family
DX: M25.511 Pain in right shoulder (principal); M25.611 Stiffness of right shoulder, not elsewhere classified

== ENCOUNTER 2025-02-07 10:40 | Outpatient (RCR) | payer OTHER | END 2025-02-08 | LOC: M PT 10:40 | PROVIDERS: ATTEND Nurse Practitioner Family | DX: M25.511 Pain in right shoulder (principal); M25.611 Stiffness of right shoulder, not elsewhere classified ==

== ENCOUNTER 2025-02-21 10:45 | Outpatient (RCR) | payer OTHER | END 2025-03-10 | LOC: M PT 10:45 | PROVIDERS: ATTEND Nurse Practitioner Family | DX: M25.511 Pain in right shoulder (principal); M25.561 Pain in right knee ==